=== PATIENT | male | born 1975 | race Two or more races ===

== ENCOUNTER 2019-02-21 05:07 | Day surgery (SDC) | payer OTHER ==
[~2019-02-21 05:07] MED LIST: DILATIAZEM PO; HYDROCHLOROTH12.5 M1 PO; [UNRECOGNIZED DRUG - OTHER] PO
[2019-02-21] MEDS ORDERED: TYLENOL EXTRA500 MG PO (10:08)
[2019-02-21] MEDS ORDERED: ZOFRAN4 MG PO (10:08)
[2019-02-21] MEDS ORDERED: NEURONTIN300 MG PO (10:08)
[2019-02-21] MEDS ORDERED: MIRALAX17 GM PO (10:08)
[2019-02-21] MEDS ORDERED: TRAMADOL HCL50 MG PO (10:08)
== END 2019-02-21 13:10 | disposition home or self-care (01) ==
LOC: CIR.AMB 05:07
DX: K43.6 Other and unspecified ventral hernia with obstruction, without gangrene (principal)